=== PATIENT | male | born 1955 | race Caucasian/White ===

== ENCOUNTER 2023-07-08 14:19 | Emergency (ER) | payer MEDICARE, BC ==
[~2023-07-08] VITALS: Ht 167.6 cm; Wt 77.6 kg
[2023-07-08] MEDS ORDERED: LIDOCAINE 1%-EPI 1:100,000 20 ML VIAL ONE (14:58)
[2023-07-08] MEDS: LIDOCAINE 1%-EPI 1:100,000 20 ML VIAL TP ONE (15:33)
[2023-07-08 17:38] VITALS: BP 126/72; TEMP 98; O2SAT 93
== END 2023-07-08 17:37 | disposition home or self-care (01) ==
LOC: ER 15:14
DX: S01.01XA Laceration without foreign body of scalp, initial encounter (principal); R51.9 Headache, unspecified; M54.2 Cervicalgia; I10 Essential (primary) hypertension; E11.9 Type 2 diabetes mellitus without complications; G89.29 Other chronic pain; Z88.8 Allergy status to other drugs, medicaments and biological substances; Z60.2 Problems related to living alone; W01.0XXA Fall on same level from slipping, tripping and stumbling without subsequent striking against object, initial encounter; Y93.89 Activity, other specified; Y92.89 Other specified places as the place of occurrence of the external cause; Y99.8 Other external cause status
CPT/HCPCS: 12004; 70450; 72125; 99284; A6403; J3490